=== PATIENT | male | born 1975 | race Caucasian/White ===

== ENCOUNTER 2017-02-20 09:12 | Emergency (ER) | payer MEDICAID ==
[~2017-02-20] VITALS: Ht 170.2 cm; Wt 89.0 kg
[~2017-02-20 09:12] MED LIST: IBUP-1542 PO; TRAM50TA2 PO
[2017-02-20 09:15] VITALS: Ht 170.2 cm; Wt 89.0 kg
[2017-02-20] MEDS ORDERED: COLC0.6T6 PO (10:33)
[2017-02-20] MEDS ORDERED: INDO25CA25 PO (10:33)
--- NOTE | 2017-02-20 10:35 | ERD ---
ER Documentation Chief Complaint Date/Time DATE: 02/20/17 TIME: 10:34 Chief Complaint left knee pain HPI 41-year-old male claims left knee pain worsening over the last week. He has a history of gout diagnosed approximately 6 months ago. Responded well to treatment for gout. He denies any new trauma. He does work on his knees. He denies any fevers, redness. He has additional request of a urology referral for testosterone check as he has a history of testicular surgery and believes his testicles are small. Denies any acute pain or injury redness or swelling. ROS All systems reviewed and are negative except as per history of present illness. Medications Home Meds Active Scripts Colchicine* (Colcrys*) 0.6 Mg Tablet, 0.6 MG PO BID for 3 Days, #6 TAB Prov:LIAM WEBSTER MD 02/20/17 Indomethacin* (Indocin*) 25 Mg Capsule, 25 MG PO Q6, #20 CAP Prov:LIAM WEBSTER MD 02/20/17 Ibuprofen* (Motrin*) 600 Mg Tab, 600 MG PO Q6, #20 TAB Prov:LIAM WEBSTER MD 04/10/16 Tramadol HCl (Tramadol HCl) 50 Mg Tablet, 50 MG PO Q4 Y for PAIN, #20 TAB Prov:LIAM WEBSTER MD 04/10/16 PMhx/Soc Medical and Surgical Hx: pt denies Medical Hx History of Surgery: Yes (HERNIA) Anesthesia Reaction: No Hx Neurological Disorder: No Hx Respiratory Disorders: No Hx Cardiac Disorders: Yes (HTN) Hx Psychiatric Problems: No Hx Miscellaneous Medical Probl: No Hx Alcohol Use: Yes (OOC) Hx Substance Use: No Hx Tobacco Use: No Smoking Status: Never smoker Physical Exam Vitals Vital Signs Date Time Temp Pulse Resp B/P Pulse Ox O2 Delivery O2 Flow Rate FiO2 02/20/17 09:15 97.8 71 18 147/69 99 Physical Exam Const: [], [id number]. Head: Atraumatic Eyes: Normal Conjunctiva ENT: Normal External Ears, Nose and Mouth. Neck: Full range of motion..~ No meningismus. Resp: Clear to auscultation bilaterally Cardio: Regular rate and rhythm, no murmurs Abd: Soft, non tender, non distended. Normal bowel sounds Skin: No petechiae or rashes Back: No midline or flank tenderness Ext: No cyanosis, or edema. Mild left knee suprapatellar effusion. No warmth or erythema restricted range of motion weakness or deformities. No calf swelling or Homans sign. Neur: Awake and alert Psych: Normal Mood and Affect Procedures/MDM Presents with recurrent left knee pain and a history of gout. Is currently no evidence of erythema or suggestion of septic arthritis, bacterial infection, DVT. There is no history of trauma to suggest fracture or dislocation. We treated empirically with colchicine and Indocin and primary care follow-up and return precautions. He will be given numbers for urology for his nonurgent urology history. Patient should return for fevers, redness, new or worsening symptoms with primary doctor this week. The patient was stable with no new complaints during the ER course. Clinically, there is no current evidence to suggest meningitis, sepsis, acute abdomen, pneumonia, acute coronary syndrome, pulmonary embolism, or any other emergent condition appearing to require further evaluation or hospitalization. The patient should certainly return for any new or worsening symptoms per the aftercare instructions. They should otherwise follow-up with her primary care doctor for reevaluation this week. Departure Diagnosis: Primary Impression: Knee pain Chronicity: acute Laterality: left Qualified Code: M25.562 - Acute pain of left knee Condition: Stable Patient Instructions: Gouty Arthritis, Knee Pain, Uncertain Cause Referrals: PETER TRUJILLO MD, BRIAN E LEFF, RICHARD G. MD NO PRIMARY,CARE PHYSICIAN (PCP) Additional Instructions: Cheque otro vez con serna doctor primario en el proximo diaz or regresa para mas o nueva simptomas-JOSE A CROSS. LIAM WEBSTER MD Feb 20, 2017 10:35
== END 2017-02-20 11:21 | disposition home or self-care (01) ==
LOC: FTE 09:12
DX: M25.562 Pain in left knee (principal); I10 Essential (primary) hypertension
CPT/HCPCS: 99284